=== PATIENT | female | born 1995 | race Caucasian/White ===

== ENCOUNTER → 2017-01-16 | Outpatient (CLI) | payer OTHER ==
--- NOTE | 2017-01-16 11:00 | NUR ---
[facility] 2 HRS. Client is referred by court for alcohol/drug eval following arrested for possession of marijuana with intent to deliver. She completed testing and interview. See eval for recommendations.
--- NOTE | 2017-01-23 11:37 | CDE ---
ADMIT: 01/16/2017 RM/LOC: [facility] MR#: [id number] [id number] [address] , [address] [place] [address] Chemical Dependency Evaluation SEX: F AGE: 21 : 1995 A. DEMOGRAPHICS: NAME: Rosa Hayward DATE OF : 1995 EVALUATING COUNSELOR: SUMEET Duggan, [facility] DATE OF EVALUATION: 01/16/2017 B. PRESENTING PROBLEM/CHIEF COMPLAINT: This client reports she is referred as she has a case pending and a court- ordered drug evaluation. She states that she was charged with possession and intent to distribute marijuana in [facility] in 2016. C. MEDICAL HISTORY: This client does not report any illnesses, accidents, injuries, or operations. She is not presently on any medications nor currently under a doctor's care. Her last doctor's visit was in July of 2016. She reports last dental exam was in 2011. Client does not report any allergies. She does not indicate any history of traumatic brain injury. Client has not experienced any recent changes in appetite or weight, and does not indicate any other health concerns at this time. D. WORK/SCHOOL/ HISTORY: This client indicated she completed through the 12th grade and has a high school diploma. She had future goals of going to nursing school, but is aware that her current felony charge will complicate that. She has been employed at [employer] in [place], [place], for four year and works approximately 35-40 hours per week. She denies ever missing work or school because of alcohol or drug use. This client has never been in the . E. ALCOHOL/DRUG ASSESSMENT SUMMARY: ALCOHOL: Client reported she first consumed alcohol at approximately the age of 18. She stated she does not really like alcohol. She indicates in the past, she has drank beer, wine, and also shots. She did not like shots. She estimates drinking a couple of times per month. She reports she last drank for New Years in October of 2016. She said she also drank on her 21st birthday which was [birth year]. She stated that she vomited on that occasion and indicates that is the only time she has ever become ill due to drinking. MARIJUANA: The client reported she first used marijuana at the age of 16. She did admit after graduating high school and moving out on her own at the age of 18, her use of marijuana increased. She stated she would not use before work but did sometimes use after work and at times, may be used on a daily basis. She stated since the arrest, she had smoked marijuana on a couple of occasions but became very anxious. She reports last use of marijuana was celebration, October of 2016. She denies any use of marijuana since that time. COCAINE: Denies. ADMIT: 01/16/2017 RM/LOC: [facility] MR#: [id number] [address] [place] [id number] ROSA HAYWARD [address] [place] [address] , [address] [place] [address] Chemical Dependency Evaluation SEX: F AGE: 21 : 1995 AMPHETAMINES: Denies. HALLUCINOGENS: Denies. HEROIN: Denies. MISUSE OF PRESCRIPTION DRUGS: Denies. OTHER DRUGS (INHALANTS, OVER THE COUNTER, ETC): Denies. NICOTINE: Client reported she first experimented with cigarettes at age 16. Beginning around ages 18 to 19, she smoked more regularly. She reports currently smoking one pack of cigarettes over a 2-week period. This client does not report any family history of addiction. Client indicates she has stopped using due to the trouble she is in. There is a discrepancy as she indicates that her longest period of abstinence in November of 2016, however identified last use of substances was , October 27, 2016. This client denies ever experiencing any withdrawal symptoms. She did identify problems related to alcohol and drug use in that she is tired physically and has cases pending. This client further stated she has kept her arrest a secret from her parents as she does not want to disappoint them. She stated her sisters are aware of it. She also indicated problems in her relationship with her boyfriend. 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 This client initially responded no to all of the chemical dependency diagnostic questions. Upon review, she admitted at times, she does look forward to the end of the day or weekend in order to drink or use, indicating some preoccupation. Client also identified increased tolerance, hurried ingestion, using to calm nerves and sometimes to relax and sleep at night as well as smoking in the morning. She has felt guilty about her drinking and using, as well as admits to continued use of marijuana. This client has never been to a detox facility or had any past treatment attempts. There is no reported IV drug use nor any other addictive behaviors such as gambling indicated by the client. Client does indicate she is residing with her boyfriend and per her report, he has continued to use marijuana despite their arrest. F. LEGAL HISTORY: Client indicated that in 2014, she was charged in [place] with a fifth-degree theft which occurred at [employer] and paid a fine. In 2016, the client was charged with possession of marijuana with intent to distribute which is pending court at this time. G. FAMILY/SOCIAL/PEER HISTORY: The client was raised by her biological parents in [place], [place], since the age of 9. She stated she was born in [place] and the family moved as her dad was transferred with his job. Parents have never been or . Client reports a close relationship with both parents. She did indicate her parents were strict and discipline included time-outs or losing privileges and that they were monitored closely growing up. Client left home ADMIT: 01/16/2017 RM/LOC: [facility] MR#: [id number] [facility] [address] [place] [id number] [address] , [address] [place] [address] Chemical Dependency Evaluation SEX: F AGE: 21 : 1995 at the age of 18. She has never been and has no children. She has been with her current boyfriend for approximately two and half years. She stated they were arrested together and she is uncertain about the future of this relationship. This client is second in a siblingship of three, having an older sister, age 24, and a younger sister, age 16. She denies any physical or sexual abuse. She does indicate that the majority of her friends do drink and use. She tends to spend time with friends and people at work. She denies any gang involvement. Client does speak both Slovenian and Irish. She reports recreational activities to include working out at the gym or running. She also enjoys doing puzzles. She admits puzzles may include the use of marijuana. This client does not participate in any particular buddhism. H. PSYCHIATRIC/BEHAVIORAL HISTORY: This client denies any thoughts or attempts of suicide. There is no reported family history of suicide. Client does not indicate ever receiving any inpatient or outpatient treatment for mental health or behavioral problems. I. COLLATERAL INFORMATION: Client signed a release of information to her significant other, whom she resides with. They were arrested together. He indicates no concerns about the client's past use. He stated he is not using as he is currently on probation himself and has no other questions or feedback about the assessment process. Message was left for air antisubmarine officer, Lulu Carmen. No information as of the time of this dictation has been received. J. OTHER DIAGNOSTIC/SCREENING TOOLS - SCORE RESULTS: THE DRINKER TYPE RATING: Is a measure of how the client perceives their own drinking and/or using. This rating is indicative of how resistant or accepting the person is to the drinking problem. The client chose their rating from the following classifications: ALCOHOL Total Abstainer Light Social (non-problem) Drinker Moderate Social (non-problem) Drinker User Heavy Social (non-problem)Drinker Problem Drinker Alcoholic OTHER DRUG Nonuser Light Social (non-problem) User Moderate Social (non-problem) User Heavy Social (non-problem) User ADMIT: 01/16/2017 RM/LOC: [facility] MR#: [id number] [phone] ROSA HAYWARD [address] [place] [address] , [address] [place] [address] Chemical Dependency Evaluation SEX: F AGE: 21 : 1995 Problem User Addicted/Dependent The client initially indicated herself as both a total abstainer and nonuser. Upon review asking to consider history, she did indicate in the past, she has been a moderate social non problem drinker and a heavy social non problem user. SUBSTANCE ABUSE SUBTLE SCREENING INVENTORY (SASSI): The SASSI is an assessment tool specifically designed to provide a clearer picture of what lies beneath the facade presented by most patients or clients. Scores on this assessment aid in distinguishing nonabusers from abusers, alcoholics from drug abusers and nondefensive clients from defensive ones. The incorporation of a "denial scale" further enhances the ability to make an accurate recommendation. The client's SASSI scores according to the decision rule would classify the client as having a low probability of having a substance use disorder. Client scores are: Face Valid Alcohol (FVA): 6 Face Valid Other Drugs (FVOD): 13 Symptoms (SYM): 6 Obvious Attributes (OAT): 4 Subtle Attributes (SAT): 3 Defensiveness (DEF): 3 Supplemental Addiction Measure (FRANDY): 6 Family versus Controls (FAM): 7 Correctional (COR): 4 Random Answering Pattern (RAP): 0 These scores would indicate a low probability of a qryxtjvz-au-tebaqj substance use. On the mild substance use disorder guideline, it does indicate further evaluation as she meets two, FVOD is 9 or more, SYM is 6 or more, any one of those guidelines indicate the need for further evaluation. We administered the ASI. Please see attached summary sheet. K. CLINICAL IMPRESSION: DSM V diagnoses: 305.20 (F12.10), cannabis use disorder, mild. Problems in relationship with significant other. Interaction with the legal system. This client presented in a timely fashion. She was neat in appearance and friendly and cooperative throughout the interview process. There were some ADMIT: 01/16/2017 RM/LOC: [facility] MR#: [id number] [address] [place] [id number] ROSA HAYWARD [address] [place] [address], [address] [place] [address] Chemical Dependency Evaluation SEX: F AGE: 21 : 1995 discrepancies in the information provided by the client. Initially, she indicated she had not used since New 's and then later indicated a period of abstinence from November of 2016 until current. Client also was unable to provide a more accurate date of her arrest, other than to indicate it was in 2015. The client identifies her strengths to be that she learns fast and she has motivation. She identified her weakness or something that she needs to work on as having more social interaction with other people outside of work. L. RECOMMENDATIONS PRESENTED TO CLIENT: It is recommended that this client participate in outpatient treatment program to include education as well as attendance at 12-step meetings. It would be vital that this client participate in drug screens in order to assure that she is abstaining from substances. If the client is unable to remain abstinent in an outpatient program, she may be in need of a higher level of care. This client verbalized understanding of the recommendations. [facility] CLINICAL ASSESSMENT CRITERIA: Low/Medium/High Dimension 1 = Intoxication and Withdrawal (i.e. history of withdrawal, level of current use): Low. Dimension 2 = Medical (i.e. , diabetes, medications, chronic conditions): Low. Dimension 3 = Emotional/Behavior Conditions (i.e. psych history, impulsivity, depression, anxiety, trauma history): Medium. Dimension 4 = Treatment Acceptance/Resistance (i.e. past history, minimization/blame, acknowledgement of problem, pressure to seek treatment, does not feel they have a problem): Medium. Dimension 5 = Relapse Potential (i.e. inability to abstain, use despite consequences, significant preoccupation, relapse despite outpatient treatment attempts): Medium. ADMIT: 01/16/2017 RM/LOC: [facility] MR#: [id number] [address] [place] [address] [address] , [address] [place] [address] Chemical Dependency Evaluation SEX: F AGE: 21 : 1995 Dimension 6 = Recovery/Living Environment (i.e. current users reside in environment, family attitude, lack of consistent adult support in living environment, high exposure to using in social/work environment): High. CRIMINOGENIC RISK FACTORS: Low/Moderate/High Antisocial Attitudes: Low. Antisocial Peers: Moderate to high. Self Control Skills: Moderate. Family Dysfunction: Moderate. Past Criminality: Low. SUMEET Dugagn, CASEY/ tl JOB #: [id number] CC:
== END | disposition home or self-care (01) ==
LOC: ADTC.GI 08:26
DX: F12.20 Cannabis dependence, uncomplicated (principal); Z63.9 Problem related to primary support group, unspecified